=== PATIENT | male | born 1955 | race Two or more races ===

== ENCOUNTER → 2024-12-31 | Outpatient (CLI) | payer OTHER ==
--- NOTE | 2024-12-31 10:16 | DVH ---
CLINICAL INDICATION: 69 years old, Male; CHRONIC RIGHT HIP PAIN. TECHNIQUE: Noncontrast CT of the right hip was performed. Sagittal and coronal reformatted images are provided. COMPARISON: None CT Dose: CTDI volume is 14.7 mGy. Dose-length product is 428.52 mGy*cm FINDINGS: No fracture or dislocation. There is a well-circumscribed, lucent lesion in the proximal femur measur ing 3.3 cm in maximum craniocaudal dimension with a peripherally sclerotic margin. There is no endost eal scalloping or cortical destruction. There is right hip joint space narrowing and small osteophytes along the femoral head neck junction. There are small subchondral cysts in the right acetabulum. No significant right hip joint effusion. Regional soft tissues are within normal limits aside from scattered arterial calcifications. IMPRESSION: 1. No fracture or dislocation. Mild right hip osteoarthritis. 2. 3.3 cm lytic lesion in the proximal right femur with a peripherally sclerotic margin, favoring a b enign bone lesion. All CT scans at this medical facility are performed using dose modulation techniques as appropriate t o a performed exam including the following: Automated exposure control was utilized; adjustment of th e MA and/or KV according to patient size; and use of iterative reconstruction technique.
== END | disposition home or self-care (01) ==
LOC: XYW 08:24
DX: M16.11 Unilateral primary osteoarthritis, right hip (principal); G89.29 Other chronic pain
CPT/HCPCS: 73700